=== PATIENT | male | born 1955 | race Native Hawaiian/Other Pacific Islander ===

== ENCOUNTER 2020-06-09 10:10 | Emergency (ER) | payer OTHER ==
[~2020-06-09] VITALS: Ht 182.9 cm; Wt 86.2 kg
[2020-06-09 10:15] VITALS: TEMP 98.9
[2020-06-09 10:48] LABS: PLATELET COUNT 218 K/uL (142-355)
[2020-06-09 11:56] LABS: POTASSIUM 3.8 mmol/L (3.6-5.2)
[2020-06-09 13:00] VITALS: BP 171/92
== END 2020-06-09 13:30 | disposition home or self-care (01) ==
LOC: ED 10:15
PROVIDERS: Emergency Medicine
DX: R04.0 Epistaxis (principal); I10 Essential (primary) hypertension; G44.89 Other headache syndrome
CPT/HCPCS: 80053; 80307; 81000; 85027; 93005; 96374; 99284; J3490

== ENCOUNTER 2020-09-27 08:54 | Outpatient (CLI) | payer OTHER | END 2020-09-27 23:23 | disposition home or self-care (01) | LOC: US 08:54 | DX: E78.49 Other hyperlipidemia (principal) ==

== ENCOUNTER 2021-07-18 09:40 | Outpatient (CLI) | payer OTHER | END 2021-07-18 21:45 | disposition home or self-care (01) | LOC: MRI 09:40 | PROVIDERS: ATTEND Anesthesiology Pain Medicine | DX: M54.16 Radiculopathy, lumbar region (principal) ==

== ENCOUNTER 2021-11-22 09:57 | Outpatient (CLI) | payer OTHER | END 2021-11-22 19:02 | disposition home or self-care (01) | LOC: MRI 09:57 | PROVIDERS: ATTEND Anesthesiology Pain Medicine | DX: M54.16 Radiculopathy, lumbar region (principal) ==

== ENCOUNTER 2023-03-30 17:08 | Inpatient (IN) | payer OTHER ==
[~2023-03-30] VITALS: Ht 182.9 cm; Wt 77.1 kg
[2023-03-30 17:10] VITALS: BP 167/98; TEMP 101.6
[2023-03-30 17:58] LABS: PLATELET COUNT 191 K/uL (142-355)
[2023-03-30 18:00] VITALS: BP 157/91; TEMP 99.9
[2023-03-30 18:00] LABS: POTASSIUM 2.7 mmol/L (3.6-5.2)
[2023-03-30 18:22] LABS: PARTIAL THROMBOPLASTIN TIME 37.7 SECONDS (23.9-36.7)
[2023-03-30 21:36] VITALS: BP 163/96; TEMP 98.9; Ht 182.9 cm; Wt 77.1 kg
[2023-03-31] VITALS: BP 143/83; TEMP 98.6
[2023-03-31 04:00] VITALS: BP 143/68; TEMP 98.8
[2023-03-31 05:58] LABS: PLATELET COUNT 163 K/uL (142-355)
[2023-03-31 06:02] LABS: POTASSIUM 2.9 mmol/L (3.6-5.2)
[2023-03-31 08:00] VITALS: BP 150/84; TEMP 97.5
[2023-03-31 12:00] VITALS: BP 159/83; TEMP 99.1
[2023-03-31] MEDS ORDERED: AMLODIPINE BESYLATE PO (15:45)
[2023-03-31] MEDS ORDERED: LISI20TA11 PO (15:51)
[2023-03-31 16:00] VITALS: BP 174/92; TEMP 97.4
[2023-03-31 20:00] VITALS: BP 172/89; TEMP 100.4
== END 2023-03-31 20:30 | disposition short-term general hospital (02) | DRG 603 ==
LOC: ED 17:08 → MED/SURG 19:03
PROVIDERS: ADMIT Emergency Medicine; ATTEND Internal Medicine
DX: L03.114 Cellulitis of left upper limb (principal); E87.1 Hypo-osmolality and hyponatremia; E87.6 Hypokalemia; E83.42 Hypomagnesemia; I10 Essential (primary) hypertension; B95.4 Other streptococcus as the cause of diseases classified elsewhere; B95.7 Other staphylococcus as the cause of diseases classified elsewhere; Z87.891 Personal history of nicotine dependence
CPT/HCPCS: 36415; 36600; 80053; 81002; 82805; 83605; 83735; 85027; 85610; 85730; 86140; 87040; 87070; 87077; 87185; 87186; 87205; 96361; 96365; 99284; J1650; J1885; J2543; J3370; J3475